=== PATIENT | female | born 1985 | race Caucasian/White ===

== ENCOUNTER 2017-10-07 19:38 | Outpatient (CLI) | payer BC ==
[~2017-10-07 19:38] MED LIST: DOCU100C33 PO; HYDR-3240 PO; IBUP-1222 PO; PREN1TAB56 PO
== END 2017-10-07 20:14 | disposition home or self-care (01) ==
LOC: LDOP 19:38
PROVIDERS: ATTEND Obstetrics & Gynecology
DX: O36.8130 Decreased fetal movements, third trimester, not applicable or unspecified (principal); Z3A.30 30 weeks gestation of pregnancy
CPT/HCPCS: 59025; 99211; G0463